=== PATIENT | female | born 2005 | race Caucasian/White ===

== ENCOUNTER 2023-09-14 20:30 | Emergency (ER) | payer OTHER ==
[~2023-09-14] VITALS: Ht 157.5 cm; Wt 40.8 kg
[2023-09-14 21:51] LABS: PH,URINE 5.5 (5.0-8.0); URINE APPEARANCE Clear; URINE BILIRRUBIN Negative (NEGATIVE); URINE BLOOD Negative; URINE COLOR Yellow; URINE GLUCOSE Negative (NEGATIVE); URINE LEUKOCYTE Small; URINE NITRATE Negative; URINE PROTEIN Trace (NEGATIVE)
[2023-09-14 21:51] LABS: HEMATOCRIT 35.8 % (36.0-45.00); MEAN CELL VOLUME 85.7 fL (80.00-100.00); MEAN CORPUSCULAR HEMOGLOBIN 28.7 pg (27.00-32.0); MEAN CORPUSCULAR HGB CONC 33.5 g/dl (32.0-36.0); PLATELET COUNT 268 K/uL (150-450); RED BLOOD COUNT 4.18 M/uL (4.00-6.00); RED CELL DISTRIBUTION WIDTH 14.9 % (11.5-14.5)
[2023-09-14 21:52] LABS: URINE EPITHELIAL CELLS 55.9 uL (0.0-38.8); URINE RBC 4.1 uL (0.0-20.8); URINE WBC 100.3 uL (0.0-23.2)
== END 2023-09-15 00:53 | disposition home or self-care (01) ==
LOC: EMR PED 20:31 → ER 20:31 → EMR PED 21:38
PROVIDERS: Emergency Medicine
DX: J10.1 Influenza due to other identified influenza virus with other respiratory manifestations (principal); Z20.822 Contact with and (suspected) exposure to COVID-19